=== PATIENT | male | born 1985 | race Caucasian/White ===

== ENCOUNTER 2020-03-10 18:57 | Emergency (ER) | payer OTHER, MEDICAID ==
[~2020-03-10] VITALS: Ht 177.8 cm; Wt 72.6 kg
[2020-03-10 19:10] VITALS: BP_SYST 136
[2020-03-10 19:35] LABS: BASOPHILS % (AUTO) 0.1 % (0.0-2.0); EOSINOPHILS % (AUTO) 0.1 % (0.0-4.0); HEMATOCRIT 46.6 % (36-54); HEMOGLOBIN 15.4 g/dL (14.0-18.0); LYMPHOCYTES # (AUTO) 1.3 K/uL (1.0-5.5); LYMPHOCYTES % (AUTO) 8.9 % (20.5-51.5); MEAN CORPUSCULAR HEMOGLOBIN 28 pg (27-31); MEAN CORPUSCULAR HGB CONC 33 % (32-36); MEAN CORPUSCULAR VOLUME 86 fL (79.0-98.0); MONOCYTES # (AUTO) 0.8 K/uL (0.0-1.0); MONOCYTES % (AUTO) 5.6 % (1.7-9.3); NEUTROPHILS # (AUTO) 12.5 K/uL (1.8-7.7); NEUTROPHILS % (AUTO) 85.3 % (40.0-70.0); PLATELET COUNT (AUTO) 243 K/uL (130-430); RED BLOOD CELL COUNT(AUTO) 5.44 MIL/uL (4.2-6.2); RED CELL DISTRIBUTION WIDTH 13.4 % (9.0-15.0); WHITE BLOOD COUNT (AUTO) 14.6 K/uL (4.8-10.8)
[2020-03-10 19:43] LABS: CALCIUM 9.2 mg/dL (8.4-11.0); CREATININE 1.04 mg/dL (0.55-1.30); POTASSIUM 4.2 mmol/L (3.5-5.1)
[2020-03-10 19:49] LABS: ALBUMIN 3.9 g/dL (3.4-4.8); TOTAL BILIRUBIN 0.8 mg/dL (0.0-1.0)
[2020-03-10] MEDS ORDERED: cefTRIAXone 1 GM IVPB PREMIX 50 ML IV ONE (20:00)
[2020-03-10 21:28] LABS: BILIRUBIN,URINE NEGATIVE (NEGATIVE); BLOOD, URINE NEGATIVE (NEGATIVE); CLARITY/URINE CLEAR (CLEAR); COLOR,URINE YELLOW (YELLOW); GLUCOSE,URINE NEGATIVE (NEGATIVE); KETONES,URINE TRACE (NEGATIVE); LEUKOCYTE ESTERASE ,URINE NEGATIVE (NEGATIVE); NITRITE, URINE NEGATIVE (NEGATIVE); PH,URINE 6.5 (5.0-8.0); PROTEIN URINE NEGATIVE (NEGATIVE); UROBILINOGEN,URINE 0.2 (0.2-1.0)
[2020-03-11 03:36] VITALS: BP_SYST 110
== END 2020-03-11 03:36 | disposition short-term general hospital (02) ==
LOC: SED 18:57
DX: G93.6 Cerebral edema (principal); R56.9 Unspecified convulsions; R11.2 Nausea with vomiting, unspecified
CPT/HCPCS: 36415; 70450; 71045; 80053; 81003; 85025; 87040; 87086; 96365; 99285; J0696